=== PATIENT | female | born 1995 | race Caucasian/White ===

== ENCOUNTER 2021-10-13 09:46 | Emergency (ER) | payer MEDICAID ==
[~2021-10-13] VITALS: Ht 165.1 cm; Wt 59.0 kg
[~2021-10-13 09:46] MED LIST: DIPH25CA83 PO; NO HOME MEDS
[2021-10-13 13:53] VITALS: BP 124/72
== END 2021-10-13 13:56 | disposition home or self-care (01) ==
LOC: ER 09:47
DX: F41.9 Anxiety disorder, unspecified (principal); R07.9 Chest pain, unspecified; Z79.899 Other long term (current) drug therapy
CPT/HCPCS: 93005; 99283

== ENCOUNTER 2022-01-24 09:10 | Emergency (ER) | payer MEDICAID ==
[~2022-01-24] VITALS: Ht 165.1 cm; Wt 59.5 kg
[2022-01-24 09:26] VITALS: BP 131/82
[2022-01-24] MEDS ORDERED: LEVONORGESTREL 1.5MG tablet 1.5 MG TABLET PO ONE (11:30)
[2022-01-24] MEDS ORDERED: CefTRIAXone 500MG IM Kit w/LIDOcaine (for pt below or = to 150kg) IM ONE (11:30)
[2022-01-24] MEDS ORDERED: ibuprofen tablet 400 MG TABLET PO ONE (12:05)
[2022-01-24] MEDS ORDERED: acetaminophen 325mg tablet PO ONE (12:05)
[2022-01-24] MEDS ORDERED: DOXYCYCLINE 100MG CAPSULE PO SCH (12:34)
[2022-01-24] MEDS ORDERED: metroNIDAZOLE 500mg tablet PO SCH (12:35)
[2022-01-24 13:44] LABS: URINE HCG NEGATIVE (NEG)
--- NOTE | 2022-01-24 15:49 | NUR ---
ONE SAFE PLACE ADVOCATE WAS OFFERED. PT DENIED ADVOCATE [facility]. PT HAD HER AUNT AT BEDSIDE DURING EXAM. STI PROPHYLAXIS WAS OFFERED AND ADMINISTERED. PT DENIED ANY OTHER PHYSICAL INJURY. PT WAS GIVEN TYLENOL AND MOTRIN FOR HEADACHE.
== END 2022-01-24 15:54 | disposition home or self-care (01) ==
LOC: EEVIPCON 09:10 → ER 09:10
DX: T74.21XA Adult sexual abuse, confirmed, initial encounter (principal); Z72.0 Tobacco use
CPT/HCPCS: 81025; 96372; 99284; J0696

== ENCOUNTER 2022-06-27 15:04 | Emergency (ER) | payer MEDICAID, OTHER ==
[~2022-06-27] VITALS: Ht 165.1 cm; Wt 59.1 kg
[2022-06-27 16:22] VITALS: BP 116/59
== END 2022-06-27 17:45 | disposition home or self-care (01) ==
LOC: ER 15:05
DX: S80.02XA Contusion of left knee, initial encounter (principal); W19.XXXA Unspecified fall, initial encounter; Y93.89 Activity, other specified; Y92.89 Other specified places as the place of occurrence of the external cause; Y99.8 Other external cause status
CPT/HCPCS: 73564; 76882; 99284; A6449

== ENCOUNTER 2022-07-11 08:40 | Emergency (ER) | payer MEDICAID ==
[~2022-07-11] VITALS: Ht 167.6 cm; Wt 60.4 kg
[2022-07-11 08:46] VITALS: BP 109/65
== END 2022-07-11 10:36 | disposition home or self-care (01) ==
LOC: ER 08:40
DX: M25.562 Pain in left knee (principal)
CPT/HCPCS: 73564; 99283

== ENCOUNTER 2023-09-03 15:38 | Emergency (ER) | payer MEDICAID ==
[~2023-09-03] VITALS: Ht 167.6 cm; Wt 73.0 kg
[2023-09-03 17:33] LABS: BASOPHILS % (AUTO) 0.4 % (0-1); EOSINOPHILS # (AUTO) 0.1 X10'3 (0-0.9); EOSINOPHILS % (AUTO) 1.4 % (0-6); HEMATOCRIT 38.3 % (35.0-45.0); HEMOGLOBIN 13.1 g/dl (12.0-16.0); LYMPHOCYTES # (AUTO) 1.3 X10'3 (1.1-4.8); LYMPHOCYTES % (AUTO) 12.4 % (21-51); MEAN CORPUSCULAR HEMOGLOBIN 32.2 PG (27.0-31.0); MEAN CORPUSCULAR HGB CONC 34.3 g/dL (33.0-36.5); MEAN CORPUSCULAR VOLUME 93.8 FL (78-98); MEAN PLATELET VOLUME 8.1 FL (7.4-10.4); MONOCYTES # (AUTO) 0.5 X10'3 (0-0.9); MONOCYTES % (AUTO) 4.8 % (2-12); NEUTROPHILS # (AUTO) 8.2 X10'3 (1.8-7.7); PLATELET COUNT 205 X10'3 (140-440); RED BLOOD COUNT 4.08 X10'6 (4.20-5.60); RED CELL DISTRIBUTION WIDTH 13.7 % (11.5-14.5); WHITE BLOOD COUNT 10.1 X10'3 (4.5-11.0)
[2023-09-03 17:46] LABS: ALANINE AMINOTRANSFERASE 20 U/L (12-78); ALBUMIN 3.4 G/DL (3.4-5.0); ALBUMIN/GLOBULIN RATIO 0.9 (1.1-1.5); ALKALINE PHOSPHATASE 53 IU/L (46-116); ANION GAP 9 (8-16); ASPARTATE AMINO TRANSFERASE 13 U/L (10-37); BILIRUBIN,TOTAL 0.3 MG/DL (0.1-1.0); BLOOD UREA NITROGEN 10 MG/DL (7-18); BUN/CREATININE RATIO 19.6 (10.0-20.0); CALCIUM 9.3 MG/DL (8.5-10.1); CHLORIDE 103 MMOL/L (99-107); CREATININE 0.51 MG/DL (0.40-0.90); GLUCOSE 85 MG/DL (70-104); POTASSIUM 3.9 MMOL/L (3.5-5.1); SODIUM 136 MMOL/L (135-145); TOTAL CARBON DIOXIDE 23.8 MMOL/L (24-32); eCRCL 156 ML/MIN; eGFR > 90 ML/MIN
[2023-09-03 18:18] LABS: BILIRUBIN,URINE NEGATIVE (Neg); CLARITY,URINE CLOUDY (Clear); COLOR,URINE YELLOW (Yellow); GLUCOSE, URINE NEGATIVE (Neg); KETONES,URINE NEGATIVE (Neg); LEUKOCYTE ESTERASE ,URINE NEGATIVE (Neg); NITRITES, URINE NEGATIVE (Neg); OCCULT BLOOD,URINE TRACE-INTACT (Neg); PH,URINE 5.5 (4.8-8.0); PROTEIN,URINE NEGATIVE (Neg); UROBILINOGEN,URINE 0.2 E.U/dL (0.2-1.0)
[2023-09-03 18:19] LABS: URINE HCG POSITIVE (NEG)
[2023-09-03 18:44] LABS: UA COLLECTION TYPE NON-SPECIFIED
[2023-09-03 18:46] LABS: MUCUS STRANDS FEW /LPF (Neg); SQUAMOUS EPITHELIAL CELL,UR MODERATE /LPF (FEW); TRANSITIONAL EPI CELLS,URINE FEW /HPF
[2023-09-03 18:47] LABS: BACTERIA,URINE FEW /HPF (Neg); RBC,URINE 0-2 /HPF (0-2); WBC,URINE 0-4 /HPF (0-4)
[2023-09-03 19:17] VITALS: BP 120/70; PULSE 62; RESP 16; TEMP 98.6; O2SAT 95
== END 2023-09-03 19:21 | disposition home or self-care (01) ==
LOC: ER 15:38
DX: O46.8X1 Other antepartum hemorrhage, first trimester (principal); Z3A.12 12 weeks gestation of pregnancy; Z79.899 Other long term (current) drug therapy
CPT/HCPCS: 36415; 76801; 80053; 81001; 81025; 84702; 85025; 86900; 86901; 99284